=== PATIENT | female | born 1995 | race African-American/Black ===

== ENCOUNTER 2023-03-04 23:07 | Emergency (ER) | payer OTHER ==
[2023-03-04 23:28] VITALS: BMI 36.0
[2023-03-05] MEDS ORDERED: LACTATED RINGERS SOLUTION 1000 ML INFUS.BAG IV ONE (00:56)
[2023-03-05] MEDS ORDERED: MECLIZINE HCL 25 MG TABLET (FP) PO ONE (00:57)
[2023-03-05] MEDS ORDERED: METOCLOPRAMIDE HCL INJECTION 10 MG/2 ML VIAL IVPUSH ONE (00:57)
[2023-03-05 01:06] VITALS: BP 133/93; PULSE 78; RESP 16; TEMP 98
[2023-03-05] MEDS ORDERED: METOCLOPRAMIDE HCL INJECTION 10 MG/2 ML VIAL ONE (01:27)
[2023-03-05] MEDS ORDERED: MECLIZINE HCL 25 MG TABLET (FP) ONE (01:27)
[2023-03-05 01:47] LABS: BASO % 1.1 % (0-2.0); EOS % 5.2 % (0-4.5); HEMATOCRIT 36.6 % (32.4-45.2); HEMOGLOBIN 11.8 GM/dL (10.7-15.3); LYMPH % 37.3 % (8-40); MCH 24.6 pg (25.7-33.7); MCHC 32.3 g/dl (32.0-36.0); MEAN CELL VOLUME 76.2 fl (80-96); MEAN PLT VOLUME 8.2 fl (7.5-11.1); MONO % 5.8 % (3.8-10.2); NEUT % 50.6 % (42.8-82.8); PLATELET COUNT 291 10^3/uL (134-434); RBC 4.81 M/mm3 (3.60-5.2); WHITE BLOOD COUNT 8.5 K/mm3 (4.0-10.0)
[2023-03-05 02:11] LABS: CALCIUM 8.5 mg/dL (8.5-10.1)
[2023-03-05 02:12] LABS: ALBUMIN 3.5 g/dl (3.4-5.0); BLOOD UREA NITROGEN 8.5 mg/dL (7-18)
[2023-03-05 02:15] LABS: CREATININE 0.8 mg/dL (0.55-1.3)
[2023-03-05 02:17] LABS: TOT PROT 8.1 g/dl (6.4-8.2)
[2023-03-05 02:44] LABS: BILIRUBIN,TOTAL 0.1 mg/dL (0.2-1)
== END 2023-03-05 03:18 | disposition home or self-care (01) ==
LOC: JER 23:07
PROC: 3E033GC Introduction of Other Therapeutic Substance into Peripheral Vein, Percutaneous Approach (ICD-10-PCS; principal; 2023-03-05)
DX: R51.9 Headache, unspecified (principal); R42 Dizziness and giddiness; R26.81 Unsteadiness on feet; R07.9 Chest pain, unspecified
CPT/HCPCS: 36415; 80053; 84703; 85025; 93005; 93010; 99284-25